=== PATIENT | male | born 1975 | race Caucasian/White ===

== ENCOUNTER 2017-02-01 19:50 | Emergency (ER) | payer BC, OTHER ==
[~2017-02-01] VITALS: Ht 170.2 cm; Wt 98.6 kg
[~2017-02-01 19:50] MED LIST: AMOXICILLIN 8751 TAB PO; BACTRIM DS 8001 TAB PO; CELEXA40 MG PO; CEPHALEXIN500 M2 PO; CYCLOBENZAPRINE10 MG PO; METHYLPHENIDATE10 M3 PO; NAPROXEN500 MG PO; OMEPRAZOLE20 MG PO; PROPRANOLOL; RITALIN LA10 M1 PO; TIZANIDINE HCL4 MG PO; TIZANIDINE HYDRO4 M1 PO; TRIAMCINOLONE A15 G3 TP; ULTRAM 50MG TAB50 MG PO; ZOLOFT 100MG100 MG PO; ZOLPIDEM10 M1 PO; [UNRECOGNIZED DRUG - OTHER] PO; [UNRECOGNIZED DRUG - OTHER] PO
[2017-02-01 20:25] VITALS: BP 130/84
== END 2017-02-01 20:25 | disposition home or self-care (01) ==
LOC: ED 19:50
DX: S61.441A Puncture wound with foreign body of right hand, initial encounter (principal); Z23 Encounter for immunization; W45.8XXA Other foreign body or object entering through skin, initial encounter; Y92.009 Unspecified place in unspecified non-institutional (private) residence as the place of occurrence of the external cause
CPT/HCPCS: 90715

== ENCOUNTER 2019-11-21 13:06 | Emergency (ER) | payer BC, OTHER ==
[~2019-11-21 13:06] MED LIST changes: +INDERAL 10MG10 MG PO; -PROPRANOLOL
[2019-11-21 13:19] VITALS: BP 129/76
[2019-11-21] MEDS ORDERED: DESYREL DIVIDO150 M1 PO (13:27)
[2019-11-21] MEDS ORDERED: FLUOXETINE40 MG PO (13:29)
== END 2019-11-21 14:35 | disposition home or self-care (01) ==
LOC: ED 13:06
DX: S93.402A Sprain of unspecified ligament of left ankle, initial encounter (principal); F43.10 Post-traumatic stress disorder, unspecified; F32.9 Major depressive disorder, single episode, unspecified; K21.9 Gastro-esophageal reflux disease without esophagitis; Z87.891 Personal history of nicotine dependence; X50.1XXA Overexertion from prolonged static or awkward postures, initial encounter; Y92.009 Unspecified place in unspecified non-institutional (private) residence as the place of occurrence of the external cause
CPT/HCPCS: L4386

== ENCOUNTER 2023-06-11 10:58 | Outpatient (RCR) | payer OTHER ==
[~2023-06-11 10:58] MED LIST changes: +DESYREL DIVIDO150 M1 PO; +FLUOXETINE40 MG PO
== END 2023-06-30 | disposition home or self-care (01) ==
LOC: PT
DX: Z98.890 Other specified postprocedural states (principal)